=== PATIENT | female | born 1960 ===

== ENCOUNTER 2016-10-29 00:38 | Emergency (ER) | payer OTHER ==
--- NOTE | 2016-10-29 01:29 | XR ---
EXAM: XR Right Elbow Complete, 3 or More Views CLINICAL HISTORY: Reason: Pain TECHNIQUE: Frontal, lateral and oblique views of the right elbow. COMPARISON: None. FINDINGS: Bones/joints: Acute radial neck fracture , likely noncomminuted, resulting in mild displacement of the radial head. Small elbow joint effusion is seen. No dislocation. Soft tissues: Associated adjacent soft tissue swelling. IMPRESSION: Acute radial neck fracture, likely noncomminuted, resulting in mild displacement of the radial head. Small elbow joint effusion
[2016-10-29] MEDS ORDERED: ONDANSETRON 4 MG ODT STARTER PACK 2 TAB BTL PO STA (02:04)
[2016-10-29] MEDS ORDERED: MORPHINE SULFATE 10 MG/ML SYRINGE IM STA (02:04)
[2016-10-29] MEDS ORDERED: ACET/COD 300 MG/30 MG STARTER PACK 6 TAB BTL PO STA (02:04)
--- NOTE | 2016-10-29 02:41 | ED ---
Upper Extremity HPI - General Chief Complaint: Extremity Injury, Upper Stated Complaint: fall-arm pain Time Seen by Provider: 10/29/16 01:20 Source: patient, RN notes reviewed, old records reviewed Mode of arrival: wheelchair Limitations: no limitations - History of Present Illness Initial Comments: This is a 56 year old female from [place], [place] presenting with right elbow pain after she slipped and fell in her bathroom. She is here visiting family. She reports that initially her elbow looked out of place, and her reset it for her. She reports that she is otherwise very healthy, denies significant medical history. She is right handed. Denies any hand pain, shoulder pain. She states that she cannot rotate her elbow due to pain. She reports immediate swelling. - Related Data Previous Rx's Medication Instructions Recorded Acetaminophen-Codeine 300-30mg 1 tab PO Q8H PRN #20 tablet 10/29/16 [Tylenol #3] Ondansetron Odt [Zofran Odt] 4 mg PO Q12HR PRN #20 tab 10/29/16 Allergies Allergy/AdvReac Type Severity Reaction Status Date / Time No Known Allergies Allergy Verified 10/29/16 00:47 Review of Systems ROS Statement: Those systems with pertinent positive or pertinent negative responses have been documented in the HPI. ROS Other: All systems not noted in ROS Statement are negative. Past Medical History Past Medical History: No Reported History History of Any Multi-Drug Resistant Organisms: None Reported Past Surgical History: Cholecystectomy Past Psychological History: No Psychological Hx Reported Smoking Status: Never smoker Past Alcohol Use History: Rare Past Drug Use History: None Reported General Exam - General Exam Comments Initial Comments: This is a pleasant 56 year old female, no acute distress. Limitations: no limitations General appearance: alert, in no apparent distress Head exam: Present: atraumatic, normocephalic, normal inspection Eye exam: Present: normal appearance, PERRL, EOMI. Absent: scleral icterus, conjunctival injection, periorbital swelling ENT exam: Present: normal exam, mucous membranes moist Neck exam: Present: normal inspection. Absent: tenderness, meningismus, lymphadenopathy Respiratory exam: Present: normal lung sounds bilaterally. Absent: respiratory distress, wheezes, rales, rhonchi, stridor Cardiovascular Exam: Present: regular rate, normal rhythm, normal heart sounds. Absent: systolic murmur, diastolic murmur, rubs, gallop, clicks GI/Abdominal exam: Present: soft, normal bowel sounds. Absent: distended, tenderness, guarding, rebound, rigid Extremities exam: Present: normal inspection, normal capillary refill. Absent: full ROM, tenderness, pedal edema, joint swelling, calf tenderness Right Shoulder Exam: Present: normal inspection, full ROM Upper Arm exam: Present: normal inspection, full ROM Elbow exam: Present: tenderness, swelling (over radial head. no tenderness to olecranon. ). Absent: normal inspection, full ROM Forearm Wrist exam: Present: normal inspection, full ROM Hand Wrist exam: Present: normal inspection, full ROM Neuro motor exam: Present: wrist extension intact, thumb opposition intact, thumb IP flexion intact, thumb adduction intact, fingers 2-5 abduction intact Vascular: Present: normal capillary refill Back exam: Present: normal inspection Neurological exam: Present: alert, oriented X3, CN II-XII intact Psychiatric exam: Present: normal affect, normal mood Skin exam: Present: warm, dry, intact, normal color. Absent: rash Course Vital Signs 10/29/16 10/29/16 00:43 02:52 Temperature 97.0 F L 98 F Pulse Rate 76 80 Respiratory 20 17 Rate Blood Pressure 201/97 156/64 O2 Sat by Pulse 100 98 Oximetry Procedures - Orthopedic Splinting/Casting Injury #1 Side: right Upper Extremity Injury Location: elbow Upper Extremity Immobilizer: sugar tong splint (Long splint. ) Additional Comments: Patient reevaluated and is neurovascularly intact. Medical Decision Making - Medical Decision Making This is a 56 year old female from [place], [place] presenting with right elbow pain after she slipped and fell in her bathroom. She is here visiting family. She reports that initially her elbow looked out of place, and her reset it for her. She reports that she is otherwise very healthy, denies significant medical history. She is right handed. Denies any hand pain, shoulder pain. She states that she cannot rotate her elbow due to pain. She reports immediate swelling. Patient has significant swelling over right elbow and tender over olecranon process. Patient xrays show a radial neck fracture, and patient placed in long arm sugar tong splint and sling. Discussed patient needs to follow up with orthopedic for full cast. Discussed needs to remain in splint until seen orthopedic. Patient agrees to treatment plan and will comply. Return parameters discussed. - Radiology Data Radiology results: report reviewed Acute radial neck fracture, likely noncomminuted, resulting in mild displacement of the radial head. Small elbow joint effusion. Disposition Clinical Impression: Right radial head fracture Disposition: HOME SELF-CARE Condition: Good Instructions: Elbow Fracture in Adults (ED) Additional Instructions: Advised to follow-up with an orthopedic physician for permanent casting. Remain in the sling and splint until followed up with them. Take pain medication and nausea medication as directed. Return to the emergency department if any alarming signs or symptoms occur. Prescriptions: Acetaminophen-Codeine 300-30mg [Tylenol #3] 1 tab PO Q8H PRN #20 tablet PRN Reason: Pain Ondansetron Odt [Zofran Odt] 4 mg PO Q12HR PRN #20 tab PRN Reason: Nausea Referrals: Nonstaff,Physician [Primary Care Provider] - 1-2 days Time of Disposition: 02:38
[2016-10-29 02:53] VITALS: BP 156/64; PULSE 80; RESP 17; TEMP 98
== END 2016-10-29 02:52 | disposition home or self-care (01) ==
LOC: EC 00:38
DX: S52.121A Displaced fracture of head of right radius, initial encounter for closed fracture (principal); Z53.8 Procedure and treatment not carried out for other reasons; W01.0XXA Fall on same level from slipping, tripping and stumbling without subsequent striking against object, initial encounter; Y92.091 Bathroom in other non-institutional residence as the place of occurrence of the external cause
CPT/HCPCS: 73080; 99284; 29105; S0119